=== PATIENT | male | born 1980 | race Caucasian/White ===

== ENCOUNTER 2021-02-08 11:09 | Outpatient (RCR) | payer BC, SELFPAY ==
[2014-09-02 22:35] VITALS: BMI 27.8
== END 2021-03-15 23:59 ==
LOC: IMMUN 11:09
PROVIDERS: PCP Family Medicine; Referring Provider Family Medicine; Visit Provider Family Medicine
DX: Z23 Encounter for immunization (principal)
CPT/HCPCS: 0001A; 0002A; 91300

== ENCOUNTER 2023-10-26 01:41 | Emergency (ER) | payer BC, SELFPAY ==
[2023-10-26 01:41] VITALS: BP 151/110; PULSE 106; RESP 17; TEMP 35.8; O2SAT 98; BMI 29.4
[2023-10-26 01:42] VITALS: BP 151/110; PULSE 85; RESP 16; TEMP 35.8; O2SAT 99
--- NOTE | 2023-10-26 01:50 | RAD_ITS ---
EXAM: XR LEFT SHOULDER COMPLETE, 2 OR MORE VIEWS CLINICAL INDICATION: injury injury TECHNIQUE: Two or more views of the left shoulder. COMPARISON: No relevant prior studies available. FINDINGS: BONES/JOINTS: Unremarkable. No acute fracture. No subluxation. Normal alignment. Preservation of the joint space. No sclerotic or destructive changes observed. SOFT TISSUES: Unremarkable. No soft tissue swelling or gas. No radiopaque foreign body. RAD/Shoulder min 2 Views IMPRESSION: Negative left shoulder x-rays. Electronically Signed: Edd Welch MD at 2:13 EST Reading Location ID and State: [facility] / [place] , Service support ,
--- NOTE | 2023-10-26 01:51 | EDS_ITS ---
HPI History of Present Illness Chief Complaint: Upper Extremity Injury Detail of Chief Complaint: Left shoulder injury Informant: patient Onset/Context/Timing Onset: Yesterday Narrative Narrative: Patient presents after left shoulder injury. He states last evening (day before arrival) the patient was running through his apartment when he ran into a wall with his left shoulder. He has bruising and erythema over the lateral aspect of his shoulder. No paresthesias. He does have decreased range of motion secondary to pain. He is right-hand dominant. He denies any other injury. He did take ibuprofen approximately 13 hours prior to exam. [facility] Medical History (Updated 10/26/23 @ 02:[address] Henny Ackerman MD) Asthma Home Medications albuterol sulfate 90 mcg/actuation aerosol inhaler (ProAir HFA) 1 - 2 puff inhalation Q4H PRN PRN Asthma 09/02/14 [History Last Taken Unknown] naproxen 500 mg tablet (Naprosyn) 500 mg PO BID PRN pain #20 tabs 10/26/23 [Rx Last Taken Unknown] Allergy/AdvReac Type Severity Reaction Status Date / Time No Known Allergies Allergy Verified 10/26/23 01:43 Family History Other Hypertension Kidney disease Surgical History H/O hernia repair Social History Smoking Status: Current every day smoker tobacco type: cigarettes alcohol intake: current alcohol intake frequency: a few times a week Alcohol type: beer ROS ROS ED Constitutional Constitutional ED: Denies chills or fever(s) Eyes Eyes: Denies discharge from eye(s) ENT ENT ED: Denies discharge from eye(s), rhinorrhea or sore throat Cardiovascular Cardiovascular: Denies chest pain or palpitations Respiratory/Chest Respiratory/Chest: Denies cough or dyspnea Gastrointestinal Gastrointestinal: Denies abdominal pain, nausea or vomiting Musculoskeletal Musculoskeletal: Reports extremity pain; Denies back pain Integumentary Denies Abrasions or rash Neurologic Neurologic: Reports weakness; Denies headache(s) or paresthesias Psychiatric Psychiatric: Denies anxiety or depression Allergic/Immunologic Allergic/Immunologic ED: Denies lip swelling or urticaria EXAM Physical Exam Const Vital Signs: 10/26/23 01:42 10/26/23 01:41 Temperature 96.5 F L 96.5 F L Temperature Source Temporal Temporal Pulse Rate 85 106 H Respiratory Rate 16 17 Blood Pressure 151/110 H 151/110 H Blood Pressure Mean 123 123 Pulse Ox 99 98 Oxygen Delivery Method Room Air Room Air Positive well nourished and well developed General Appearance ED: well developed HEENT Reports moist mucous membranes Chest Wall inspection of chest normal and palpation of chest normal Resp normal respiratory effort and clear to auscultation bilaterally Cardio regular rate and regular rhythm GI non-tender Palpation: soft Extremity Extremity Narrative: Ecchymosis and abrasions noted over the lateral aspect of the left shoulder. Mild diffuse tenderness to this area. No tenderness over the scapula or clavicle. No tenderness over the hand or forearm. Good range of motion at the elbow and wrist. Strong hand grasp with normal sensation. Strong distal pulses. Decreased range of motion at the shoulder itself secondary to pain. Neuro oriented x3 Skin Skin Narrative: Ecchymosis and abrasions as noted above. MDM MDM MDM Narrative Medical decision making narrative: Patient given a dose of [place] for pain. Left shoulder x-rays obtained to evaluate for potential fracture, subluxation, dislocation. Treatment and Re-Evaluation Narrative: Left shoulder x-rays per my interpretation reveal no evidence of fracture or dislocation. Radiology interpretation reviewed and agrees. Test results discussed with the patient. He will be given a prescription for naproxen and a sling. He was instructed on coming out of the sling several times a day to work on range of motion. He will be referred to orthopedics for follow-up if not improving. Return instructions given. Discharge Plan Triage Chief Complaint: Upper Extremity Injury ED Provider: Henny Ackerman Dx/Rx/DC Orders Clinical Impression: Contusion of left shoulder, Sprain of left shoulder Instructions: ED Contusion, Upper Extremity, ED Shoulder Sprain Prescriptions: New naproxen [Naprosyn] 500 mg tablet 500 mg PO BID PRN (Reason: pain) Qty: 20 0RF No Action albuterol sulfate [ProAir HFA] 1 PUFF inhaler 1 - 2 puff inhalation Q4H PRN PRN (Reason: Asthma) Primary Care Provider: Care Physician,No Primary Referrals: Yared Bowden MD [Non-Staff] - Gibran Kerr MD [Med Staff - Active Staff] - As Needed Disposition Disposition: Home, Self Care
[2023-10-26] MEDS: HYDROcodone Bitartrate/Apap 5/325 Tablet PO (01:54)
--- OUTSIDE RECORDS SUMMARY | 2023-10-26 02:15 | XMS RPT_ITS | CCD ---
Author Name Unknown Address [address] [place] [address] Organization [facility] Results Test Name Value Interpretation Reference Range Facil ity Progress note 07-15-2021 Note Date & Type Note Facility 07-15-2021 Note HNO ID: [id number] Author: Destiney Shrestha PA-C Service: ? Author Type: Physician [employer] Estate [employer]iter Type: Progress Notes Filed: 07/15/2021 3:30 PM Note Text: FOLLOW UP VISIT - HERNIA NAME: Suraj Garvey CLINIC NO.: [id number] DATE OF SERVICE: 07/15/2021 : 1980 REFERRING PHYSICIAN: Stephon Bowden MD Suraj is a patient I am following for a recurrent right inguinal hernia. Dr. Escobar performed open right recurrent inguinal hernia repair with mesh on 07/04/21. Patient was noted to have extensive scarring of the inguinal canal from prior surgery. He was found to have a sliding inguinal hernia sac with bladder wall. The patient currently notes no major complaints. his appetite has been good. he denies fever, chills or abdominal pain. He does note some mild incisional discomfort, improving each day. he notes no bulges at the operative site. Patient wishes to return to work tomorrow, states works mostly at a desk with no lifting. VITALS: Blood pressure 128/90, pulse 76, temperature 37.2 ?C (99 ?F), temperature source Temporal, height 180.3 cm (5' 11 ), weight 107.4 kg (236 lb 12.8 oz), SpO2 97 %. General: patient is alert, cooperative, pleasant and in no acute distress On examination, the abdomen is benign. The incision is healing well without signs of infection or inflammation. There are no signs of recurrent hernia formation. Assessment IMPRESSION: status post open right recurrent inguinal hernia repair with mesh PLAN: If the patient notes any problems, he should contact me immediately. he may return to his regular activities as tolerated, with the exception of no lifting greater than 20 pounds for the next 7 weeks. If patient feels the urge to cough or sneeze, they should brace against the repair site with their hands or a pillow. Diagnoses: (Z98.890, Z87.19) S/P hernia repair (primary encounter diagnosis) Return to Clinic: The patient is instructed to follow-up with me as needed. Patient verbalized understanding of all above and agreed with the plan. Destiney Shrestha PA-C [facility] Progress note 06-10-2021 Note Date & Type Note Facility 06-10-2021 Note HNO ID: [id number] Author: Yenni Escobar MD Service: ? Author Type: Physician Type: Progress Notes Filed: 06/15/2021 5:18 PM Note Text: HISTORY AND PHYSICAL Suraj Garvey 1980 REFERRING PHYSICIAN: Stehpon Bowden MD CHIEF COMPLAINT: Consult (consult possible right inguinal hernia) HPI: The patient is a 40 year old male presents with right groin swelling and pain He denies chronic heavy lifting. He has noted swelling for about two years, but lately has noted increased discomfort. He had previous right inguinal hernia repair as a child. He denies obstructive gastrointestinal or urine symptoms. PAST MEDICAL HISTORY Diagnosis Date - GERD (gastroesophageal reflux disease) - Unspecified asthma(493.90) - rarely uses inhalers PAST SURGICAL HISTORY Procedure Laterality Date - REPAIR ING HERNIA,5+Y/O,REDUCIBL 1984 Hernia repair, inguinal, right [place] teeth removal Current Outpatient Medications Medication Sig - albuterol HFA (PROAIR HFA) 90 mcg/actuation inhaler Inhale 2 Puffs as instructed every 4 hours as needed for Wheezing/Shortness of Breath. ALLERGIES: Patient has no known allergies. PERSONAL HISTORY: Social History Tobacco Use - Smoking status: Former Smoker Packs/day: 0.50 Types: Cigarettes Quit date: 11/11/2015 Years since quittin.5 - Smokeless tobacco: Current User Types: Chew Vaping Use - Vaping Use: Never used Substance Use Topics - Alcohol use: Yes Comment: OCCASIONAL - Drug use: No FAMILY HISTORY Problem Relation Age of Onset - Hypertension Father - Kidney Disease Father Polycystic Kidney Disease The review of systems data was entered by the nurse and reviewed by me Nursing Notes: Angie Navarro RN 06/10/2021 8:47 AM Signed REVIEW OF SYSTEMS: General: The patient denies fatigue, denies weight loss, denies weight gain, denies feeling hot, and denies feelings of cold. Eyes: The patient denies glaucoma, denies eye injury/surgery, does not wear glasses or contacts. Ear/Nose/Throat: The patient denies allergies, denies hayfever, denies ear infections, and denies bloody noses. Cardiovascular: The patient denies chest pain, denies heart disease, denies high blood pressure,denies cardiac stent, denies prior heart attack, denies irregular heart beat, denies high cholesterol, denies poor circulation, denies heart failure, other cardiac issues, denies claudication, denies cold feet, denies peripheral arterial stent. Respiratory: has asthma but rarely uses inhalers, has shortness of breath with exertion, denies coughing up blood . Gastrointestinal: The patient denies difficulty swallowing, NOTES acid reflux, denies ulcers, denies vomiting, denies jaundice/hepatitis, denies gallbladder problems, denies black or tarry stools, denies hemorrhoids, denies bleeding from rectum, denies diverticulitis, denies constipation, denies diarrhea, denies loss of stool control, and NOTES hernias. Kidney/Bladder: notes decreased urine stream, denies kidney stones, denies urine infections, and denies bloody urine. Skin: The patient denies a history of skin cancer, denies bleeding/changing moles, and denies a history of skin rash. Neurologic: The patient denies a history of epilepsy/convulsions, denies headaches, denies head/spinal injuries, and denies stroke/TIA. Psychiatric: The patient denies psychiatric medications, denies depression, and denies voices, denies substance abuse. Endocrine: The patient denies thyroid disorders, denies diabetes, and denies hormonal problems. Hematologic: The patient denies a history of bruising, denies bleeding, and denies anemia, denies blood clots. Infections: The patient denies a history of measles and mumps, denies rheumatic fever, and denies sexually transmitted diseases. Musculoskeletal: The patient denies back pain/injury, denies back problems, denies sciatica, denies knee/foot trouble, denies arthritis, or denies gout. When was patient's last Mammogram screening? N/A Last Colonoscopy: None Angie Navarro RN PHYSICAL EXAMINATION: General: The patient is 40 year old male, well nourished, well hydrated in no acute distress. The patient is oriented to time, place, and person. VITALS: Blood pressure 130/94, pulse 104, temperature 37.1 ?C (98.8 ?F), height 180.3 cm (5' 11 ), weight 107 kg (235 lb 12.8 oz), SpO2 99 %. Body mass index is 32.89 kg/m?. Head ? Normocephalic. EOM intact with sclera clear and no icterus noted. . Neck - supple with no jugular venous distention noted. Trachea is midline. Lungs ? clear to auscultation. Normal breath sounds. No rales/rhonchi/wheezing noted. No labored breathing noted, such as retractions. No cough heard. Heart ? normal S1 and S2 auscultated. No rubs/clicks/murmurs noted. Regular rate. Abdomen ? soft and benign. Normal bowel sounds. Genitalia ? normal male phallus, testes in normal anatomical position and no masses (more content not included)... [facility] Summary Purpose Family History No Family History Records Found Advance Directives No Advanced Directives Records Found Additional Source Comments (unrecognized sect ion and content) No Status Records Found INFORMATION SOURCE (unrecogn ized section and content) FOR RECORDS PERTAINING TO PATIENTS WHO ARE OR HAVE BEEN ENROLLED IN A CHEMICAL DEPENDENCY/SUBSTANCEABUSE PROGRAM, SOME INFORMATION MAY BE OMITTED. This clinical summary was aggregated from multiple sources. Caution should be exercised in using it in the provision of clinical care. This summary normalizes information from multiple sources, and as a consequence, information in this document may materially change the coding, format and clinical context of patient data. In addition, data may be omitted in some cases. CLINICAL DECISIONS SHOULD BE BASED ON THE PRIMARY CLINICAL RECORDS. [employer] [facility]. provides no warranty or guarantee of the accuracy or completeness of information in this document.
[2023-10-26 02:22] VITALS: BP 147/96; PULSE 85; RESP 16; TEMP 36.1
== END 2023-10-26 02:27 | disposition home or self-care (01) ==
PROVIDERS: Emergency Provider Emergency Medicine; Visit Provider Emergency Medicine
DX: S43.402A Unspecified sprain of left shoulder joint, initial encounter (principal); W22.01XA Walked into wall, initial encounter; Y93.02 Activity, running; J45.909 Unspecified asthma, uncomplicated; F17.210 Nicotine dependence, cigarettes, uncomplicated
CPT/HCPCS: 73030; 99283

== ENCOUNTER 2025-03-24 04:22 | Day surgery (SDC) | payer BC, SELFPAY ==
[2025-03-24] VITALS (15 sets, daily range): BP systolic 116–164; BP diastolic 66–101; PULSE 78–96; RESP 14–18; TEMP 36.1–36.9; O2SAT 87–99; BMI 31.1
--- NOTE | 2025-03-24 04:54 | CT_ITS ---
PROCEDURE: ABDOMEN/PELVIS W IV CONT ONLY 03/24/2025 REASON FOR EXAM: RIGHT GROIN PAIN WITH HERNIA TECHNIQUE: ABDOMEN/PELVIS W IV CONT ONLY Coronal and Sagittal reconstruction series were provided. CONTRAST: Isovue-350 VOLUME: 100 mL One or more dose reduction techniques were used (e.g., Automated exposure control, adjustment of the mA and/or kV according to patient size, use of iterative reconstruction technique. RADIATION DOSE SUMMARY: CTDlvol: 20.33 mGy DLP: 203 mGycm COMPARISON: None. FINDINGS: Right inguinal hernia containing thickened segment of the cecum with surrounding fat edema and free fluid suspicious for incarceration. No associated pneumatosis coli or perforation. Left inguinal hernia containing nonincarcerated fat. Mild prostatomegaly. Scattered prostatic calcifications, chronic finding. Scattered well-defined hypodense splenic lesions are noted with the largest measuring 1.2 cm, probably benign and chronic. Mild hepatic steatosis. Left renal simple cyst measuring 1.6 cm. The visualized lung bases are unremarkable. Normal gallbladder and extrahepatic biliary system. Normal pancreas. Normal bilateral adrenal glands. Normal size of the right kidney. There is no right renal mass. There are no right renal calculi. There is no right hydronephrosis. Normal visualized right ureter. Normal size of the left kidney. There is no left renal mass. There are no left renal calculi. There is no left hydronephrosis. Normal visualized left ureter. Normal visualized stomach. Normal small intestine. The appendix is visualized and appears normal. Normal abdominal aorta. Normal inferior vena cava. Normal retroperitoneum. Normal urinary bladder. There is no pelvic mass lesion or lymphadenopathy. Normal osseous structures. CT/Abdomen/Pelvis W IV Cont ONLY IMPRESSION: Right inguinal hernia containing thickened segment of the cecum with surroundin g fat edema and free fluid suspicious for incarceration. No associated pneumatosis coli or perforation. Left inguinal hernia containing nonincarcerated fat. Mild prostatomegaly. Scattered prostatic calcifications, chronic finding. Scattered well-defined hypodense splenic lesions are noted with the largest melody suring 1.2 cm, probably benign and chronic. Mild hepatic steatosis. Left renal simple cyst measuring 1.6 cm. Findings were discussed with Dr. Lal at 6:45 am EST. Reading Location: [place] [address]
--- NOTE | 2025-03-24 04:55 | EX.ED.DYSGE1 ---
HPI History of Present Illness Chief Complaint: Abd Pain Narrative Narrative: Chief complaint and HPI: Right groin/abdominal pain. 44-year-old male with past medical history of right inguinal hernia status post repair years ago with mesh presents for evaluation of right groin/abdominal pain. Patient states years ago he had his right inguinal hernia repaired. He states later on he developed what he thinks is a recurrent hernia into his testicle. States that he has not had any significant pain so has not had this further evaluated. Patient states yesterday evening he had intercourse with his girlfriend and developed severe pain in his abdomen/testicular area. Patient states his hernia bulge is less than it previously was. He states he is continue to have abdominal pain throughout the day with associated nausea. Denies any fever, chills, shortness of breath, chest pain, diarrhea, constipation, dysuria, hematuria. Review of systems: See HPI Medications: As listed on the chart Allergies: As listed on the chart PFSH: Per chart Vital signs: As listed on the chart. Reviewed. Physical exam: Gen: A&O x3, NAD Head: Normocephalic, atraumatic Eyes: No sclera icterus, conjunctiva clear ENT: Moist mucous membranes Neck: Trachea midline, No JVD CV: RRR, no murmurs, no peripheral edema Resp: Lungs CTA BL, no w/r/c GI: Abd soft, non-distended, tender to palpation in the right groin/lower abdomen, no rebound or rigidity : Circumcised penis. No penile tenderness or discharge. Patient has a large right inguinal hernia into his scrotum-tender to palpation without skin changes, normal lie and position of the testicles. No tenderness of the actual testicles. Mild yeast. No CVA tenderness Musc: Full ROM, no deformity Skin: Warm, dry Neuro: Alert, oriented, grossly intact, sensation intact Psych: Cooperative, appropriate mood and affect [facility] Medical History (Updated 11/03/23 @ 00:19 by Background Dasuadon) Asthma Home Medications ?Medication ?Instructions ?Recorded ?Last Taken ?Type NK 03/24/25 Unknown History Allergy/AdvReac Type Severity Reaction Status Date / Time No Known Allergies Allergy Verified 03/24/25 04:27 Family History Other Hypertension Kidney disease Surgical History H/O hernia repair Social History Smoking Status: Current every day smoker tobacco type: cigarettes alcohol intake: current alcohol intake frequency: a few times a week Alcohol type: beer EXAM Physical Exam Const Vital Signs: 03/24/25 04:24 03/24/25 06:22 Temperature 98.4 F Temperature Source Oral Pulse Rate 84 84 Respiratory Rate 18 16 Blood Pressure 164/101 H 132/94 H Blood Pressure Mean 122 106 Pulse Ox 99 98 Oxygen Delivery Method Room Air Room Air MDM MDM MDM Narrative Medical decision making narrative: 44-year-old male with past medical history of right inguinal hernia status post repair years ago with mesh presents for evaluation of right groin/abdominal pain. Patient states years ago he had his right inguinal hernia repaired. He states later on he developed what he thinks is a recurrent hernia into his testicle. Yesterday after having intercourse patient noticed that his hernia was smaller and now endorsing pain. See physical exam findings. Differential diagnosis includes but is not limited to incarcerated hernia, strangulated hernia, obstruction, appendicitis. NS bolus, morphine, Zofran ordered for symptoms. Abdominal pain workup ordered including CT abdomen and pelvis. CBC without leukocytosis or anemia. BMP unremarkable. Lactic acid unremarkable. UA negative for UTI. CT abdomen pelvis shows right inguinal hernia containing thickened segment of the cecum with surrounding fat edema and free fluid suspicious for incarceration. No associated pneumatosis or perforation. I was personally informed of this read by the radiologist over the phone. Left inguinal hernia containing nonincarcerated fat. Mild prostamegaly. With prostatic calcifications. Splenic lesions probably benign. Hepatic steatosis. Renal cyst. On reevaluation, patient's pain is still present. IV Dilaudid ordered. General surgery consulted. I spoke with Dr. Stoll. He will review the imaging and evaluate the patient for further management and plan. Patient was updated of this and confirmed understanding. Patient signed out to oncoming physician Dr. Wise. He will wait for general surgery recommendations. Impression: 1. Incarcerated right inguinal hernia Lab Data Labs: Laboratory Results - last 24 hr 03/24/25 03/24/25 04:43 05:15 WBC 7.7 RBC 5.07 Hgb 15.4 Hct 45.1 MCV 89.0 MCH 30.4 MCHC 34.1 RDW Std Deviation 39.8 RDW Coeff of Jessica 12.3 Plt Count 223 MPV 10.6 Immature Gran % (Auto) 0.900 Neut % (Auto) 60.7 Lymph % (Auto) 27.6 [place] % (Auto) 7.9 Eos % (Auto) 2.1 Baso % (Auto) 0.8 Absolute Neuts (auto) 4.7 Absolute Lymphs (auto) 2.12 Nucleated RBC % 0 Sodium 140 Potassium 4.0 Chloride 104 Carbon Dioxide 23.1 Anion Gap 13 BUN 16 Creatinine 1.02 Estim Creat Clear Calc 109.69 Est GFR (MDRD) Non-Af 92 BUN/Creatinine Ratio 16.1 Glucose 111 H Lactic Acid 2.0 Calcium 8.9 Urine Color Yellow Urine Clarity Clear Urine pH 5.0 Ur Specific [place] 1.025 Urine Protein 15 H Urine Glucose (UA) Normal Urine Ketones Negative Urine Occult Blood 50 H Urine Nitrite Negative Urine Bilirubin Negative Urine Urobilinogen Normal Ur Leukocyte Esterase Negative Urine RBC 0 SEEN Urine WBC 0-5 SEEN Ur Squamous Epith Cells 0 SEEN Urine Bacteria 0 SEEN Urine Mucus 0 SEEN Radiography Diagnostic Testing: Clinical Impression(s) from Imaging Studies Abdomen/Pelvis CT 03/24/25 04:54 IMPRESSION: Right inguinal hernia containing thickened segment of the cecum with surrounding fat edema and free fluid suspicious for incarceration. No associated pneumatosis coli or perforation. Left inguinal hernia containing nonincarcerated fat. Mild prostatomegaly. Scattered prostatic calcifications, chronic finding. Scattered well-defined hypodense splenic lesions are noted with the largest measuring 1.2 cm, probably benign and chronic. Mild hepatic steatosis. Left renal simple cyst measuring 1.6 cm. Findings were discussed with Dr. Lal at 6:45 am EST. Reading Location: [place] [address] Discharge Plan Triage Chief Complaint: Abd Pain ED Provider: Chava Geiger Dx/Rx/DC Orders Prescriptions: No Action NK Primary Care Provider: Care Physician,No Primary Referrals: Care Physician,No Primary [Primary Care Provider] - Print Language: Cymro
[2025-03-24 05:02] LABS: Bacteria 0 SEEN /hpf (None Seen); Mucous, Urine 0 SEEN /hpf (<or=2+); Red Blood Cells-Urine 0 SEEN /hpf (0-5); Squamous Epithelial Cells - UA 0 SEEN /hpf (0-5)
[2025-03-24 05:03] LABS: Absolute Lymphocyte Count 2.12 X10^3/uL (0.83-4.51); Absolute Neutrophil Count 4.7 X10^3/uL (2.0-7.7); Basophil# 0.06 X10^3/uL; Basophil% 0.8 % (0-1); Eosinophil# 0.16 X10^3/uL; Eosinophils% 2.1 % (0-5); Hematocrit 45.1 % (40-54); Hemoglobin 15.4 g/dL (13.0-16.5); Lymphocyte # 2.12 X10^3/ul (0.83-4.51); Lymphocyte % 27.6 % (19-41); Mean Corp Hgb Conc 34.1 g/dL (32-36); Mean Corpuscular Hgb 30.4 pg (27.0-32.0); Mean Platelet Vol. 10.6 fl (6.2-12.0); Monocyte# 0.61 X10^3/uL; Monocyte% 7.9 % (0-10); NRBC Flagged by Analyzer 0 % (0-5); Neutrophil # 4.66 X10^3/uL (2.7-7.7); Neutrophil % 60.7 % (47-70); Platelet Count 223 K/mm3 (150-450); RBC Distribution Width CV 12.3 % (11.6-14.6); RBC Distribution Width SD 39.8 fl (35.1-43.9); Red Blood Count 5.07 M/mm3 (4.6-6.2); White Blood Count 7.7 K/mm3 (4.4-11.0)
--- OUTSIDE RECORDS SUMMARY | 2025-03-24 05:03 | XMS RPT_ITS | CCD ---
Author Organization [facility] Care Team Providers Care Furnace Unloader Name Role Phone Yared Thomas Referring Unavailable Yared Thomas Primary Care Unavailable Price Stout Attending Unavailable Henny Ackerman Attending Unavailable Care Physician, No Primary Primary Care Unava ilable Problems Active Problems Problem Classification Problem Date Documented Da te Episodic/Chronic Superficial injury; contusion (1 source) Unspecified superficial injury of left shoulder, initial encounter; Translations: [Unspecified superficial injury of left shoulder, initial encounter] Onset: 10-28-2023 Episodic Past or Other Problems Problem Classification Problem Date Documented Da te Episodic/Chronic Allergic reactions (1 source) Unspecified contact dermatitis, unspecified cause; Translations: [Unspecified contact dermatitis, unspecified cause] Onset: 04-10-2023 Episodic Results Test Name Value Interpretation Reference Range Facil ity Emergency Department Summary on 10-26-2023 Emergency Department Summary [facility] Medical Records Department [address] [facility] [place] [address] Emergency Department Summary 10/26/23 MR#: [id number] Acct: [id number] Name: SURAJ GARVEY Rep #: [id number] : 1980 43 From: Henny Ackerman MD PCP: Care Physician,No Primary Status:DEP ER Location: ED HPI History of Present Illness Chief Complaint: Upper Extremity Injury Detail of Chief Complaint: Left shoulder injury Informant: patient Onset/Context/Timing Onset: Yesterday Narrative Narrative: Patient presents after left shoulder injury. He states last evening (day before arrival) the patient was running through his apartment when he ran into a wall with his left shoulder. He has br uising and erythema over the lateral aspect of his shoulder. No paresthesias. He does have decreased range of motion secondary to pain. He is right-hand dominant. He denies any other injury. He did take ibuprofen approximately 13 hours prior to exam. [facility] Medical History (Updated 10/26/23 @ 02:[address] Henny Ackerman MD) Asthma Home Medications albuterol sulfate 90 mcg/actuation aerosol inhaler (ProAir HFA) 1 - 2 puff inhalation Q4H PRN PRN Asthma 09/02/14 [History Last Taken Unknown] naproxen 500 mg tablet (Naprosyn) 500 mg PO BID PRN pain #20 tabs 10/26/23 [Rx Last Taken Unknown] Allergy/AdvReac Type Severity Reaction Status Date / Time No Known Allergies Allergy Verified 10/26/23 01:43 Family History Other Hypertension Kidney disease Surgical History H/O hernia repair Social History Smoking Status: Current every day smoker tobacco type: cigarettes alcohol intake: current alcohol intake frequency: a few times a week Alcohol type: beer ROS ROS ED Constitutional Constitutional ED: Denies chills or fever(s) Eyes Eyes: Denies discharge from eye(s) ENT ENT ED: Denies discharge from eye(s), rhinorrhea or sore throat Cardiovascular Cardiovascular: Denies chest pain or palpitations Respiratory/Chest Respiratory/Chest: Denies cough or dyspnea Gastrointestinal Gastrointestinal: Denies abdominal pain, nausea or vomiting Musculoskeletal Musculoskeletal: Reports extremity pain; Denies back pain Integumentary Denies Abrasions or rash Neurologic Neurologic: Reports weakness; Denies headache(s) or paresthesias Psychiatric Psychiatric: Denies anxiety or depression Allergic/Immunologic Allergic/Immunologic ED: Denies lip swelling or urticaria EXAM Physical Exam Const Vital Signs: 10/26/23 01:42 10/26/23 01:41 Temperature 96.5 F L 96.5 F L Temperature Source Temporal Temporal Pulse Rate 85 106 H Respiratory Rate 16 17 Blood Pressure 151/110 H 151/110 H Blood Pressure Mean 123 123 Pulse Ox 99 98 Oxygen Delivery Method Room Air Room Air Positive well nourished and well developed General Appearance ED: well developed HEENT Reports moist mucous membranes Chest Wall inspection of chest normal and palpation of chest normal Resp normal respiratory effort and clear to auscultation bilaterally Cardio regular rate and regular rhythm GI non-tender Palpation: soft Extremity Extremity Narrative: Ecchymosis and abrasions noted over the lateral aspect of the left shoulder. Mild diffuse tenderness to this area. No tenderness over the scapula or clavicle. No tenderness over the hand or forearm. Good range of motion at the elbow and wrist. Strong hand grasp with normal sensation. Strong distal pulses. Decreased range of motion at the shoulder itself secondary to pain. Neuro oriented x3 Skin Skin Narrative: Ecchymosis and abrasions as noted above. MDM MDM MDM Narrative Medical decision making narrative: Patient given a dose of [place] for pain. Left shoulder x-rays obtained to evaluate for potential fracture, subluxation, dislocation. Treatment and Re-Evaluation Narrative: Left shoulder x-rays per my interpretation reveal no evidence of fracture or dislocation. Radiology interpretation reviewed and agrees. Test results discussed with the patient. He will be given a prescription for naproxen and a sling. He was instructed on coming out of the sling several times a day to work on range of motion. He will be referred to orthopedics for follow-up if not improving. Return instructions given. Discharge Plan Triage Chief Complaint: Upper Extremity Injury ED Provider: Henny Ackerman Dx/Rx/DC Orders Clinical Impression: Contusion of left shoulder, Sprain of left shoulder Instructions: ED Contusion, Upper Extremity, ED Shoulder Sprain Prescriptions: New naproxen [Naprosyn] 500 mg tablet 500 mg PO BID PRN (Reason: pain) Qty: 20 0RF (more content not included)... [facility] Shoulder min 2 Viewson 10-26 Shoulder min 2 Views [facility] [address] [place] [address] Shoulder min 2 Views MR#: [id number] Acct: [id number] Name: SURAJ GARVEY TY Rep #: [id number] : 1980 M 43 From: Edd saldivar MD PCP: Care Physician,No Primary Status: REG ER Study: Shoulder min 2 Views Date of Exam: 10/26/23 Exam# [id number] Ordering [place]: [place] [id number] EXAM: XR LEFT SHOULDER COMPLETE, 2 OR MORE VIEWS CLINICAL INDICATION: injury injury TECHNIQUE: Two or more views of the left shoulder. COMPARISON: No relevant prior studies available. FINDINGS: BONES/JOINTS: Unremarkable. No acute fracture. No subluxation. Normal alignment. Preservation of the joint space. No sclerotic or destructive changes observed. SOFT TISSUES: Unremarkable. No soft tissue swelling or gas. No radiopaque foreign body. RAD/Shoulder min 2 Views IMPRESSION: Negative left shoulder x-rays. Electronically Signed: Edd Welch MD at 2:13 EST , CC: Dr. Henny Ackerman MD; No Primary Care Physician Spare Hand Carding: Signed [facility] Urgent Care Visit Reporton 0 04-10-2023 Urgent Care Visit Report [facility] [address] [place] [address] [address] [place] [address] OFFICE VISIT Date of Service: 04/10/23 MR#: [id number] Acct: [id number] Name: SURAJ GARVEY TY Rep #: [id number] : 1980 Provider: AYESHA Luna Age/Sex: 42/M Location: [facility] Status: Signed Intake Vital Signs 09/02/14 22:35 04/10/23 07:38 Height 5 ft 11 in 5 ft 11 in Weight: 216 lb 4 oz BMI 30.1 BP 132/72 H Blood Pressure Location Lt brachial Position Sitting Respiration 12 Pulse 82 Pulse Source Monitor Temp 97.8 F Temp Source Temporal Pulse Oximetry (%) 99 Oxygen Delivery Method room air Intake Visit Reasons: POSION CRIS Tender Labor Required: No Accompanied by: Self Allergies No Known Allergies Allergy (Verified 09/02/14 22:43) Nurse's Note: RASH OVER TORSO AND BILATERAL UPPER AND LOWER EXTREMITIES. SEEPING X2 WKS NO RELIEF WITH OTC MEDS PFSH Medical History (Updated 04/10/23 @ 07:48 by Price HODGE, AYESHA) Asthma Chest pain Shortness of breath Surgical History (Updated 07/14/23 @ 07:24 by Christy Fulotn) H/O hernia repair Family History (Updated 04/10/23 @ 07:25 by Christy Fulton) Other Hypertension Kidney disease Social History (Updated 04/10/23 @ 07:27 by Christy Fulton) Smoking Status: Current every day smoker tobacco type: cigarettes alcohol intake: current alcohol intake frequency: a few times a week Alcohol type: beer HPI HPI Details: SURAJ GARVEY, is a 42 M who presents to the office today for complaint of poison cris rash for the past 2 weeks. Patient states he had known poison cris exposure and then started with a rash on his arms which has spread to his abdomen, lower extremities and neck. Patient denies shortness of breath, difficulty breathing or chest pain. No lip/tongue/throat swelling. No other associated symptoms or alleviating/aggravating factors. ROS Const Constitutional: No other (6 system ROS completed with pertinent findings in the HPI otherwise normal.) Exam Const General: cooperative and healthy appearing HENVA Head: normocephalic and atraumatic Ears: hearing grossly normal bilaterally Nose: external nose normal Face and sinus: normal facial exam and face symmetric Mouth: oral mucosae normal Throat: posterior oropharynx normal Resp Effort Inspection: normal respiratory effort Skin General: no rashes or lesions noted Other: Grouped vesicular rash to bilateral extremities, abdomen and neck Neuro General: patient alert Psych Appearance: grossly normal Mental Status: mental status grossly normal Coding Level of Care Code Off vis,new,level 3 Diagnoses Irritant contact dermatitis due to plant L24.7 Assessment and Plan Assessment and Plan (1) Irritant contact dermatitis due to plant: Status: Acute Medications: New prednisone Take 4 tabs once daily days 1-3 3 tabs daily days 4-6 2 tabs daily days 7-9 and 1 tab once daily days 10-12. 10 mg PO QDAY 12 days 30 tabs 0RF L25.9 - Unspecified contact dermatitis, unspecified cause Plan Prednisone taper as prescribed today. Encouraged to get plenty of rest, drink lots of clear liquids, and use Benadryl for comfort. Patient also educated on other symptomatic management techniques. To be seen in 7-10 days if no improvement; sooner if worsening of symptoms. Patient advised of potential red flags and when appropriate to report to the ED. Patient verbalized understanding and agreement with all the above. 04/10/23 0911 Date Price Rowland Signature: Date (if applicable) CC: [facility] CNOVon 07-15-2021 CNOV Office Visit (GENSWS ) SURAJ GARVEY ([id number]) 1980 M Date Time Provider Department 07/15/21 2:30 PM CHECO SHRESTHA During your visit today, we recorded the following information about you: Temperature Pulse Blood pressure Weight 99 degrees 76/minute 128/90 107.4 kg Height 1.803 m Checo Shrestha PA-C 07/15/2021 2:45 PM Signed -OK to return to work tomorrow The following instructions are important for you related to your office visit today with the [facility] General Surgeons. INSTRUCTIONS FOLLOWING YOUR RECENT HERNIA SURGERY You should be returning to your regular diet, If you have having persistent issues with tolerating your diet, please contact our office It is not unusual to have incisional pain for the first 1-2 weeks following surgery. If this persists beyond 2 weeks, contact the office You should leave the Steri-Strips in place until they fall off. You may return to your regular activities. You may drive if you are no longer taking narcotic pain medication. Climbing stairs is fine. Walking in encouraged. Sitting up from bed may be uncomfortable. Sitting up using your lateral abdominal muscles (sitting up sideways) is usually more comfortable. You should perform no lifting greater than 20lbs for the next 6-7 weeks. Usually 8 weeks total from the date of surgery. It is not unusual to have loose stools following surgery. This is usually self limited and related to the antibiotics that were given during your surgical procedure. Fiber supplementation and yogurt with active cultures may help you return to regular bowel activity. If you note loose stools persisting for over 2 weeks, or significant cramping or loose bloody stools, contact the office immediately. Contact the office immediately if any of your incisions become increasingly tender, red or have drainage. Again, if you have any difficulties or concerns, contact our office immediately. If you note any additional difficulties, questions, or concerns, you should contact our office immediately @ [phone] and ask to be transferred to the General Surgery department. Checo Shrestha PA-C 07/15/2021 3:30 PM Signed FOLLOW UP VISIT - HERNIA NAME: Suraj Garvey CLINIC NO.: [id number] DATE OF SERVICE: 07/15/2021 : 1980 REFERRING PHYSICIAN: Antonina Thomas MD Suraj is a patient I am [...] temperature source Temporal, height 180.3 cm (5' 11), weight 107.4 kg (236 lb 12.8 oz), [...] all above and agreed with the plan. ____ Checo Shrestha PA-C Referring Provider: ANTONINA THOMAS [[id number]] Allergies As of Date: 07/15/2021 (No Known Allergies) Date Reviewed: 07/15/2021 Reviewed by: Angie Navarro RN - Fully Assessed Reason for Visit: Post Op Follow Up [3947] Cmt: right inguinal hernia repair Primary Visit Diagnosis:S/P hernia repair [Z98.890, Z87.19] Prescriptions as of 07/15/2021 - oxyCODONE IR (ROXICODONE) 5 mg immediate release tablet Take by mouth every 8 hours as needed for pain. - albuterol HFA (PROAIR HFA) 90 mcg/actuation inhaler Inhale 2 Puffs as instructed every 4 hours as needed for Wheezing/Shortness of Breath. Problem List As Of Date 07/15/2021 Noted Resolved ASTHMA UNSPECIFIED [J45.909] Smoker [F17.200] 10/30/2009 COPD Exacerbation [ (more content not included)... [facility] ANES POSTPROC EVALon 021 ANES POSTPROC EVAL HNO ID: [id number] Author: Karine Engel MD Service: Anesthesiology Author Type: Physician Type: Anesthesia Postprocedure Evaluation Filed: 07/04/2021 2:04 PM Note Text: POST ANESTHESIA EVALUATION NOTE : 1980 Procedure Summary Date: 07/04/21 Room / Location: LD OR OR Anesthesia Start: 1047 Anesthesia Stop: Procedure: HERNIORRHAPHY INGUINAL ELECTIVE ADULT REDUCIBLE (Right Groin) Diagnosis: Right inguinal hernia Surgeons: Yenni Escobar MD Responsible Provider: Karine Engel MD Anesthesia Type: MAC ASA Status: 2 Anesthesia Type: MAC Last vitals Vitals Value Taken Time BP 120/78 07/04/21 1401 Temp 97.3 07/04/21 1404 Pulse 94 07/04/21 1403 Resp 12 07/04/21 1403 SpO2 95 % 07/04/21 1403 Vitals shown include unvalidated device data. Post Anesthesia Patient Status Patient Evaluation: bedside. Anticipated Disposition: phase 2 then home. Neurological Status: aware and responsive. Pulmonary Status: breathing comfortably on room air Airway Control: returned to baseline unsupported. Cardiovascular Status: stable. Pain Management: clinically adequate Postoperative Hydration: acceptable. Intraoperative Events: no significant anesthesia events Post Operative Nausea/Vomiting Status: no significant post operative nausea or vomiting Anesthetic Observations: Recommendation: continue current plan of care. Anesthesia Observations No Documentation SIGNATURE: Karine Engel MD PATIENT NAME: Suraj Garvey DATE: July 04, 2021 TIME: 2:04 PM CSN: [id number] [facility] ANES PRE-OPon 07-04-2021 ANES PRE-OP HNO ID: [id number] Author: Karine Engel MD Service: Anesthesiology Author Type: Physician Type: Anesthesia Preprocedure Evaluation Filed: 07/04/2021 10:36 AM Note Text: ANESTHESIOLOGY DAY OF SURGERY NOTE : 1980 Procedure(s) (LRB): HERNIORRHAPHY INGUINAL ELECTIVE ADULT REDUCIBLE (Right) Surgeon(s): Yenni Escobar MD Estimated body mass index is 32.89 kg/m? as calculated from the following: Height as of 06/10/21: 180.3 cm (5' 11). Weight as of 06/10/21: 107 kg (235 lb 12.8 oz). Most recent hematocrit and potassium results: No results found for this basename: HCT,HEMATOCRIT,K,POTASS IUM Relevant Problems PULMONARY (+) COPD exacerbation (HCC) I - PHYSICAL EVALUATION AIRWAY Patient intubated: No. Tracheostomy tube not present Mallampati: II. TM distance: >3 FB. Neck ROM: full ROM without neurological symptoms. Mouth opening: adequate. Short neck: yes (pt. has larsen). Thick neck: no DENTAL Dental findings: missing tooth/teeth. Additional comments: Missing teeth upper left and right and lower left. Additional exam findings: yes. CARDIOVASCULAR Normal cardiovascular observations. PULMONARY Normal pulmonary observations. II - ANESTHESIA PLAN ASA Score: 2 Anesthetic Plan: MAC The patient is not a current smoker. (quit 41/2 yrs. ago) NPO Status: adequate Monitoring plan: standard ASA. Postoperative analgesic plan: parenteral or oral opioids. Anesthetic Risks, Benefits, Alternatives, Personnel Discussed. Consent obtained from: patient.Patient / Surrogate agrees to blood products: Yes Potential Anesthesia issues that may suggest increased risk of complications or contraindication to planned procedure: none. Vitals Value Taken Time BP 115/75 07/04/21 0845 Pulse 74 07/04/2118 Resp 17 07/04/21917 Temp 37.2 ?C (98.9 ?F) 07/04/21 0825 SpO2 98 % 07/04/21 0839 Vitals shown include unvalidated device data. Facility-Administered Medications as of 07/04/2021 Medication Dose Route Frequency - lidocaine 10 mg/mL (1 %) 1-2 mg injection (XYLOCAINE) 0.1-0.2 mL INTRADERMAL PRN - lactated ringers iv infusion 5-30 mL/hr INTRAVENOUS CONTINUOUS - [COMPLETED] ceFAZolin 2 g in dextrose (iso-osmotic) 50 mL (ANCEF,KEFZOL) 2 g INTRAVENOUS Pre-Op Once Outpatient Medications as of 07/04/2021 Medication Sig - albuterol HFA (PROAIR HFA) 90 mcg/actuation inhaler Inhale 2 Puffs as instructed every 4 hours as needed for Wheezing/Shortness of Breath. I have interviewed and examined the patient. I have reviewed the medical record and/or the pre-anesthesia evaluation, pertinent labs, and test results. This contains updated information obtained within 48 hours of Surgery/Procedure. SIGNATURE: Karine Engel MD PATIENT NAME: Suraj Garvey DATE: July 04, 2021 TIME: 10:19 AM CSN: [id number] [facility] BRIEF OP NOTon 07-04-2021 BRIEF OP NOT HNO ID: [id number] Author: Yenni Escobar MD Service: ? Author Type: Physician Type: Brief Op Note Filed: 07/04/2021 1:43 PM Note Text: BRIEF OPERATIVE NOTE SURGERY DATE: 07/04/2021 Incision/Procedure Start Time: 11:04 Incision Close/Procedure End Time: 13:38 Surgeon(s)/Proceduralis t(s) and Basting Marker(s): first Shawncutting table operator first Checo Shrestha PA-C Procedures: Redo right inguinal sliding hernia repair with plug mesh Anesthesia: General Findings: medial recurrence of hernia, sliding hernia with part of bladder wall Estimated Blood Loss: 10 ml Specimens: None Complications: None IMPLANTS: Implant Name Type Inv. Item Serial No. Blood Bank Laboratory Technician Lot No. LRB No. Used Action MESH SURGIPRO LARGE POLYPROPYLENE SURGICAL NONABSORBABLE PLUG KNITTED - [id number] Mesh MESH SURGIPRO LARGE POLYPROPYLENE SURGICAL NONABSORBABLE PLUG KNITTED ATHENS [id number] Right 1 Implanted Exp 2022-11-25 Preop Diagnosis: recurrent right inguinal hernia Postop Diagnosis: redo right sliding inguinal hernia repair with plug mesh SIGNATURE: Yenni Escobar MD PATIENT NAME: Suraj Garvey DATE: July 04, 2021 TIME: 1:24 PM [facility] NURSING PROGon 07-04-2021 NURSING PROG HNO ID: [id number] Author: Su Laird RN Service: Nursing Author Type: Registered Nurse Type: Nursing Progress Note Filed: 07/11/2021 1:05 PM Note Text: Patient states he is doing well. Only has pain when he bends the wrong way. Has not needed pain medication. Dressing to incisional site intact and dry. No redness, swelling, drainage or pain at site. Has an appointment with AYESHA at Dr. Escobar's office on ThursdayJuly 15. [facility] OPERATIVE NOon 07-04-2021 OPERATIVE NO HNO ID: [id number] Author: Yenni Escobar MD Service: ? Author Type: Physician Type: Operative Report Filed: 07/05/2021 10:43 AM Note Text: [facility] - [place] : 1980 AGE: 40. SEX: M PATIENT TYPE: A HOSP SVC: GENS LOCATION: [facility] ATTENDING PHYSICIAN: Yenni Escobar MD CSN NUMBER: [id number] DATE OF SURGERY/PROCEDURE: 07/04/2021 INCISION/PROCEDURE START TIME: 11:04 AM INCISION CLOSE/PROCEDURE END TIME: 1:38 PM PREOPERATIVE DIAGNOSIS: Recurrent right inguinal hernia. POSTOPERATIVE DIAGNOSIS: Recurrent sliding right inguinal hernia. SURGEON: Yenni Escobar MD TUBE BENDER HAND: Checo Shrestha. She is a PA assisting me as there is no surgery residents available. She assisted in retraction during the procedure as well as closure of the wound under my supervision. SURGERY/PROCEDURE: Repair of sliding inguinal hernia (CPT code 73510). FINDINGS: recurrent right inguinal hernia - sliding hernia with bladder wall ANESTHESIA: General, LMA. LOCATION: [facility]. SPECIMENS: None. ESTIMATED BLOOD LOSS: Less than 10 mL. INDICATIONS: Suraj Garvey is a 40-year-old white male, who presents with right inguinal hernia. He had a previous right inguinal hernia repair as a child at the age of 3. He presents for a right inguinal hernia repair. He has been counseled the risks of procedure including, but not limited to, infection, bleeding, injury to any bowel or bladder, injury to any intraabdominal organs, injury to any blood vessels or nerves, scar tissue, recurrence of hernia, injury to spermatic cord and/or testicle, chronic groin pain, injury to any nerves, seroma, hematoma, wound infections, scar tissue, etc. The patient understands and agrees to proceed. DESCRIPTION OF PROCEDURE: After informed consent was given, the patient was brought to the operating room. Appropriate time-out protocol was done in the preprocedure area as well as in the operating room. The patient's right lower torso and genitalia and groin area were then prepped with sterile surgical skin preparation. Appropriate sterile surgical drapes were placed. The anatomical landmarks were marked out that is the pubic tubercle as well as the anterior iliac spine. The patient had a previous right inguinal incision from his previous surgery and therefore, an incision was made superior to that to avoid scar tissue. The skin and subcutaneous tissues were infiltrated with local anesthetic prior to the incision being made. Dissection then continued down to the external oblique fascia. The external oblique fascia was then opened along the inguinal canal roof through to the external ring. The patient had a large bulky sac that was noted in the inguinal canal area after the inguinal canal was unroofed and after the external oblique fascia was divided along its fibers to the external ring, carefully avoiding any injury to any blood vessels or nerves. The sac was then dissected from the adjacent cord structures down to the internal ring. This was done carefully avoiding any injury to any of the structures. This took some time because of the scar tissue that was encountered, that was from the patient's previous surgery. There was more scar tissue than anticipated given that the patient had the surgery at the age of 3. The entire inguinal canal was scarred down. Therefore, it took some time to dissect the spermatic cord contents as well as the peritoneal sac from within its position in the inguinal canal. The peritoneal portion of the sac was then identified and incised. It was revealed that the bladder wall was part of the sac, thus consistent with a sliding inguinal hernia. Its intraperitoneal surface was visualized within the sac. The peritoneal sac was then trimmed from the sliding component with good margin around the bladder and around its edge of the entire herniated portion. This was done to the level of the internal ring on all sides. The rim of tissue was then everted and sutured to itself from its apex toward the internal ring. This therefore protected the bladder sliding component. This sliding component was then reduced back into the abdominal cavity via the internal ring. The peritoneum at the internal ring was then closed with a running 3-0 Vicryl suture. The spermatic cord was then placed back in its proper anatomical position. Hemostasis was carefully check and controlled with electrocautery. Of note is that the recurrence of the hernia was at the medial aspect at the pubic tubercle. The remainder of the inguinal canal floor was intact. Therefore, a plugged portion of the PerFix patch system was then placed into this space and it was tacked to the pubic tubercle using a 5 mm tacker. The plug was then flanged up against the anterior abdominal wall. It was sutured to the confluence of the internal oblique and transv (more content not included)... [facility] HISTORY PHYSICALon HISTORY PHYSICAL HNO ID: [id number] Author: Yenni Escobar MD Service: ? Author Type: Physician Type: HANDP Filed: 07/03/2021 4:52 PM Note Text: HISTORY AND PHYSICAL ? Suraj Garvey 1980 ? ? REFERRING PHYSICIAN: Antonina Thomas MD ? CHIEF COMPLAINT: Consult (consult possible right inguinal hernia) ? HPI: The patient is a 40 year old male presents with right groin swelling and pain He denies chronic heavy lifting. He has noted swelling for about two years, but lately has noted increased discomfort. He had previous right inguinal hernia repair as a child. He denies obstructive gastrointestinal or urine symptoms. ? ? PAST MEDICAL HISTORY Diagnosis Date - GERD (gastroesophageal reflux disease) ? - Unspecified asthma(493.90) - rarely uses inhalers ? ? PAST SURGICAL HISTORY Procedure Laterality Date - REPAIR ING HERNIA,5+Y/O,REDUCIBL ? 1983 ? Hernia repair, inguinal, right [place] teeth removal ? ? Current Outpatient Medications Medication Sig - albuterol HFA (PROAIR HFA) 90 mcg/actuation inhaler Inhale 2 Puffs as instructed every 4 hours as needed for Wheezing/Shortness of Breath. ? ? ALLERGIES: Patient has no known allergies. ? PERSONAL HISTORY: Social History ? Tobacco Use - Smoking status: Former Smoker ? ? Packs/day: 0.50 ? ? Types: Cigarettes ? ? Quit date: 11/11/2015 ? ? Years since quittin.5 - Smokeless tobacco: Current User ? ? Types: Chew Vaping Use - Vaping Use: Never used Substance Use Topics - Alcohol use: Yes ? ? Comment: OCCASIONAL - Drug use: No FAMILY HISTORY Problem Relation Age of Onset - Hypertension Father ? - Kidney Disease Father ? ? Polycystic Kidney Disease ? The review of systems data was entered by the nurse and reviewed by me ? Nursing Notes: Angie Navarro RN 06/10/2021 8:47 [...] N/A Last Colonoscopy: None Angie Navarro RN ? ? PHYSICAL EXAMINATION: General: The patient is 40 year old male, well nourished, well hydrated in no acute distress. The patient is oriented to time, place, and person. VITALS: Blood pressure 130/94, pulse 104, temperature 37.1 ?C (98.8 ?F), height 180.3 cm (5' 11), weight 107 kg (235 lb 12.8 oz), [...] rate. Abdomen ? soft and benign. Normal b (more content not included)... [facility] CNOVon 06-10-2021 CNOV Office Visit (GENSWTiana ) SURAJ GARVEY ([id number]) 1980 M Date Time Provider Department 06/10/21 8:40 AM YENNI ESCOBAR During your visit today, we recorded the following information about you: Temperature Pulse Blood pressure Weight 98.8 degrees 104/minute 130/94 107 kg Height 1.803 m Angie Navarro RN 06/10/2021 8:47 AM Signed [...] cold feet, denies peripheral arterial stent. Respiratory: The patient denies tuberculosis, denies pneumonia, denies frequent cough, denies pulmonary embolism, NOTES shortness of breath, denies coughing up blood and NOTES asthma. Gastrointestinal: The patient denies difficulty swallowing, NOTES acid reflux, denies ulcers, denies vomiting, denies jaundice/hepatitis, denies gallbladder problems, denies black or tarry stools, denies hemorrhoids, denies bleeding from rectum, denies diverticulitis, denies constipation, denies diarrhea, denies loss of stool control, and NOTES hernias. Kidney/Bladder: The patient denies kidney stones, denies urine infections, and [...] last Mammogram screening? N/A Last Colonoscopy: None SAAD Harper MD 06/15/2021 5:18 PM Signed HISTORY AND PHYSICAL Suraj Garvey 1980 REFERRING PHYSICIAN: Antonina Thomas MD CHIEF COMPLAINT: Consult (consult possible right [...] ING HERNIA,5+Y/O,REDUCIBL 1984 Hernia repair, inguinal, right [place] teeth removal Current Outpatient Medications Medication Sig [...] entered by the nurse and reviewed by dc Nursing Notes: Angie Navarro RN 06/10/2021 8:47 [...] denies high blood pressure,denies cardiac stent, denies (more content not included)... [facility] Encounters Encounter Date Encounter Type Care Provider Facility Start: 10-26-2023 End: 10-26-2023 Emergency department patient visit Henny Ackerman Facility:[facility] Start: 04-10-2023 End: 04-10-2023 ambulatory Yared Thomas [place] [place] Payers Date Payer Category Payer Self-pay 2023 Unknown [id number] Unknown [id number] Unknown [id number] Progress note 07-15-2021 Note Date & Type Note Facility 07-15-2021 Note HNO ID: [id number] Author: Checo Shrestha PA-C Service: ? Author Type: Physician Basting Marker Type: Progress Notes Filed: 07/15/2021 3:30 PM Note Text: FOLLOW UP VISIT - HERNIA NAME: Suraj [facility] NO.: [id number] DATE OF SERVICE: 07/15/2021 : 1980 REFERRING PHYSICIAN: Antonina Thomas MD Suraj is a patient I am [...] temperature source Temporal, height 180.3 cm (5' 11), weight 107.4 kg (236 lb 12.8 oz), [...] all above and agreed with the plan. Checo Shrestha PA-C [facility] Progress note 06-10-2021 Note Date & Type Note Facility 06-10-2021 Note HNO ID: [id number] Author: Yenni Escobar MD Service: ? Author Type: Physician Type: Progress Notes Filed: 06/15/2021 5:18 PM Note Text: HISTORY AND PHYSICAL Surajsaundra Garvey 1980 REFERRING PHYSICIAN: Antonina Thomas MD CHIEF COMPLAINT: Consult (consult possible right [...] Procedure Laterality Date - REPAIR ING HERNIA,5+Y/O,REDUCIBL 1983 Hernia repair, inguinal, right [place] teeth removal Current Outpatient Medications Medication Sig [...] entered by the nurse and reviewed by dc Nursing Notes: Angie Navarro RN 06/10/2021 8:47 [...] ?C (98.8 ?F), height 180.3 cm (5' 11), weight 107 kg (235 lb 12.8 oz), [...] and no masses (more content not included)... [facility] Summary Purpose Family History No Family History Records FoundNo Family History Records Found Advance Directives No Advanced Directives Records FoundNo Advanced Directives Records Found Additional Source Comments (unrecognized sect ion and content) No Status Records FoundNo Status Records Found INFORMATION SOURCE (unrecogn ized section and content) DATE CREATED AUTHOR 11/13/2021 [facility] DATE CREATED AUTHOR AUTHOR'S ORGANIZ ATION 10/29/2023 [facility] FOR RECORDS PERTAINING TO PATIENTS WHO ARE [...] BE BASED ON THE PRIMARY CLINICAL RECORDS. [employer] provides no warranty or guarantee of the accuracy or completeness of information in this document.
[2025-03-24 05:12] LABS: Color, Urine Yellow (Yellow); Glucose, Dipstick Normal (Normal); Ketone-Dipstick Negative (Negative); Leukocyte Esterase-Dipstick Negative /ul (Negative); Nitrite-Dipstick Negative (Negative); Occult Blood-Urine 50 /ul (Negative); Protein-Dipstick 15 mg/dl (Negative); Specific Gravity, Urine 1.025 (1.002-1.030); Urine Bilirubin Dipstick Negative (Negative); Urine Clarity Clear (Clear); Urine Urobilinogen Normal (Normal)
[2025-03-24] MEDS: 0.9% Normal Saline (1000mL) 1,000 ML 999 ML IV (05:15)
[2025-03-24] MEDS: Ondansetron 4 MG/2 ML Vial IV (05:15)
[2025-03-24] MEDS: Morphine 4 MG/ML Syringe IV (05:16)
[2025-03-24 05:32] LABS: White Blood Cells 0-5 SEEN /hpf (0-5)
[2025-03-24 05:37] LABS: Anion Gap 13 (5-15); BUN 16 mg/dL (4-19); BUN/Creat Ratio 16.1 RATIO (10-20); Calcium,Total 8.9 mg/dL (7.6-11.0); Carbon Dioxide 23.1 mmol/L (21.0-32.0); Chloride 104 mmol/L (98-108); Creatinine, Serum 1.02 mg/dL (0.70-1.20); EST Glomerular Filtration Rate 92 (>60); Estimated Creatinine Clearance 109.69 ml/min (50-250); Glucose 111 mg/dL (70-99); Sodium Level 140 mmol/L (133-145)
[2025-03-24] MEDS: HYDROmorphone 1 MG/ML Syringe IV (07:24)
[2025-03-24] MEDS: 0.9% Normal Saline (1000mL) 1,000 ML 100 ML IV (08:08)
--- NOTE | 2025-03-24 08:58 | PRE.ANES_ITS ---
ASA Classification* ASA Classification ASA Classification: 2 Assessment & Plan Anesthesia* Anesthesia Assessment Anesthesia Assessment: Discussed sedation and/or anesthesia options, risks, benefits, and alternatives with patient/parents/legal guardian/POA. Questions invited. The patient/parents/legal guardian/POA seems to understand and agrees to proceed with anesthesia plan. Reviewed the physical assessment, medical history, allergy history and patient home medications list prior to surgery/procedure/anesthetic and documented any changes. Performed airway and anesthesia risk assessments. Anesthesia Type Anesthesia Type: General History Source History Obtained from:: Patient and Chart Anesthesia Focused Assessment* Temperature: 97.9 F Pulse Rate: 89 Blood Pressure: 134/78 Respiratory Rate: 16 Pulse Ox: 99 Oxygen Delivery Method: Room Air Airway Assessment Mouth opens: >3 cm Mallampati Score: II Teeth Condition: Chipped/Broken (Patient has a couple chipped teeth.) and Missing (Patient has several missing teeth. Rest are tight.) Neck Range of motion (ROM): Full ROM Labs Anesthesia Preop lab: CBC WBC 7.7 K/mm3 (4.4-11.0) 03/24/25 04:43 03/24/25 RBC 5.07 M/mm3 (4.6-6.2) 03/24/25 04:43 03/24/25 Hgb 15.4 g/dL (13.0-16.5) 03/24/25 04:43 03/24/25 Hct 45.1 % (40-54) 03/24/25 04:43 03/24/25 Plt Count 223 K/mm3 (150-450) 03/24/25 04:43 03/24/25 CHEMISTRY Potassium 4.0 mmol/L (3.3-5.1) 03/24/25 04:43 03/24/25 Sodium 140 mmol/L (133-145) 03/24/25 04:43 03/24/25 BUN 16 mg/dL (4-19) 03/24/25 04:43 03/24/25 Creatinine 1.02 mg/dL (0.70-1.20) 03/24/25 04:43 03/24/25 Glucose 111 mg/dL (70-99) H 03/24/25 04:43 03/24/25 COAG Pre-Assessment Diagnosis/Proposed Procedure Planned Operative Procedure(s): Laparoscopic inguinal hernia repair with mesh, possible open. Right side Anesthesia History Anesthesia History - identification officer: Anesthesia History - identification officer Hx Hospitalization Any Problems With Anesthesia No 03/24/25 08:07 Cholinesterase deficiency No 03/24/25 08:07 You/Your Family Experience No 03/24/25 08:07 fever (hyperthermia) with Relationship Recent Exposure to Contagious No 03/24/25 08:07 Disease Does patient have nerve No 03/24/25 08:07 stimulator Patient instructed to have No 03/24/25 08:07 device shut off --Does patient have Pacemaker No 03/24/25 08:13 or ICD? When Was Last Pacemaker Check QUESTION #4 FULL TEXT: You/Your Family Experience fever (hyperthermia) with Anesthesia Last Oral Intake Last Oral intake: Last Oral Intake NPO since 19:00 03/24/25 08:13 Meds taken in AM with sips of water? Meds patient instructed to take am of surgery PONV PONV - identification officer: PONV - identification officer Female HX of Motion Sickness HX of N/V After Surgery Non-Smoker Duration of Surgery greater than 60 minutes Number of Risk Factors PONV Score Height & Weight Height & Weight: Anesthesia: Height & Weight Height 5 ft 11 in 03/24/25 08:13 Weight: 101.3 kg 03/24/25 08:13 Body Mass Index (BMI) 31.1 03/24/25 08:13 Respiratory Assessment Respiratory Assessment - identification officer: Respiratory Tract Infection Hx - identification officer Hx Respiratory Tract Infection No 03/24/25 08:07 STOP Sleep Apnea STOP Sleep Apnea - identification officer: STOP Sleep Apnea - identification officer Hx Hypertension No 03/24/25 08:07 Hx Sleep Apnea No 03/24/25 08:07 CPAP BIPAP Do you snore loudly (louder No 03/24/25 08:07 than talking or can be heard Do you often feel tired/ No 03/24/25 08:07 fatigued/ sleepy during daytime? Has anyone observed you stop No 03/24/25 08:07 breathing during sleep? STOP Results Negative 03/24/25 08:07 QUESTION #5 FULL TEXT : Do you snore loudly (louder than talking or can be heard through closed doors)? Tobacco Use History Tobacco Use History - identification officer: Tobacco Use History - identification officer Tobacco Use Smoking Status Current every day smoker 03/24/25 04:26 Hx Tobacco Use Yes 09/02/14 22:49 Years Smoking Packs Smoked per Day Smoking Cessation Date was within the last 15 years Hx Smoking Cessation Date Hx Smoking Cessation Counseling Any additional information?: Yes Tobacco Use: Vapor (Patient vaped today.) Hematologic Medial History Hematologic Hx - identification officer: Hematologic Medical Hx - bus driver/monitor Hx of Blood Transfusion Hx of Transfusion in last 3 Months Date of Last Transfusion (if within last 3 months) Ever experience any problems with transfusion(s)? Specify any problems Hx of Preganancy in last 3 Months Nurse Filling Out Transfusion & Questions: Date: Time: Patient unable to answer at this time (ie. confused, unrespo /Reproduction History /Reproductive History - identification officer: /Reproductive Hx- identification officer Hx Now No 03/24/25 08:07 Gestational Age (in weeks): EDC: Hx Hx Para Hx Section SAB No 03/24/25 08:07 Active Medications Active Medications: Current Medications Generic Name Dose Route Start Last Admin Trade Name Freq PRN Reason Stop Dose Admin Sodium Chloride 1,000 mls @ 100 mls/hr 03/24/25 07:35 03/24/25 08:08 IV 100 mls/hr .Q10H JENN Administration PFSH Medical History Asthma Home Medications ?Medication ?Instructions ?Recorded ?Last Taken ?Type NK 03/24/25 Unknown History Allergy/AdvReac Type Severity Reaction Status Date / Time No Known Allergies Allergy Verified 03/24/25 04:27 Family History Other Hypertension Kidney disease Surgical History H/O hernia repair Social History Smoking Status: Current every day smoker tobacco type: cigarettes alcohol intake: current alcohol intake frequency: a few times a week Alcohol type: beer Review of Systems (Anesthesia) ROS Narrative System reviewed and no additional complaints, except as documented.
--- NOTE | 2025-03-24 09:00 | HERN_PTH ---
PATIENT: SURAJ GARVEY LOC: [facility] – [place] U#:[id number] AGE/SX: 44/M ROOM: RE03/24/[address]: Dr. Clark Stoll MD : 1980 BED: DIS: 03/24/2025 SPEC #: [id number] RECD: 03/24/25 12:49 STATUS: KEVIN RELa #: [id number] MANI: 03/24/25 09:[address]: Clark Stoll DEPT: SURGICAL PATHOLOGY RECD BY: Saúl Yao ENTERED: 03/24/25 13:44 SP TYPE: Hernia OTHR DR: No Primary Care Phys Tissues: A - HERNIA Procedures: Surgery Specimen Level II HEADER OPERATION: Laparoscopic, inguinal hernia repair mesh PRE-OP DIAGNOSIS: Incarcerated inguinal hernia right TISSUE SUBMITTED: A- Inguinal hernia sac, right MICROSCOPIC DIAGNOSIS A. Hernia, inguinal, right, incarcerated inguinal hernia, repair: - Fibroadipose tissue partially covered by an attenuated mesothelium, consistent with hernia sac. MICROSCOPIC DESCRIPTION Slides are reviewed. GROSS DESCRIPTION Received in formalin labeled with the patient's name and date of . Designated as inguinal hernia, is a beard-pink to red somewhat shaggy and edematous portion of semimembranous tissue and a portion of beard-yellow soft tissue, collectively measuring 9.9 x 7.9 x 1.6 cm. Controller Repairer And Tester sections are submitted in 1 cassette. OK 03/24/2025 CPT:51975
[2025-03-24 09:24] LABS: Reflex Lactate? Y
--- NOTE | 2025-03-24 09:31 | PCM.HP.STD ---
HPI - General General Date of Admission: 03/24/25 Date of Service: 03/24/25 Chief Complaint: Right inguinal hernia HPI Narrative SURAJ GARVEY, is a 44 M who presented to the emergency department overnight with right groin pain. Patient has a history of a previous right inguinal hernia repair performed open with mesh about [address] Escobar[address] It sounds as though this may have gradually recurred but really did not cause him any issues or problems until last night. Last night his pain intensified with severe pain in the right groin and scrotum. He presented to the emergency room for further evaluation and treatment. A CT scan was performed and revealed a large right inguinal hernia containing cecum and fluid. Surgical consult was obtained. I attempted to reduce the hernia in the ER but this was unsuccessful [facility] Medical History (Updated 03/24/25 @ 09:[address] Clark Stoll MD) Incarcerated right inguinal hernia Asthma Home Medications ?Medication ?Instructions ?Recorded ?Last Taken ?Type NK 03/24/25 Unknown History Allergy/AdvReac Type Severity Reaction Status Date / Time No Known Allergies Allergy Verified 03/24/25 04:27 Family History Other Hypertension Kidney disease Surgical History H/O hernia repair Social History Smoking Status: Current every day smoker tobacco type: cigarettes alcohol intake: current alcohol intake frequency: a few times a week Alcohol type: beer Vital Signs Vital Signs Vital Signs: 03/24/25 04:24 03/24/25 06:22 03/24/25 08:05 Temperature 98.4 F Temperature Source Oral Pulse Rate 84 84 78 Respiratory Rate 18 16 14 Blood Pressure 164/101 H 132/94 H 132/76 H Blood Pressure Mean 122 106 94 Blood Pressure Source Blood Pressure Position Blood Pressure Location Pulse Ox 99 98 98 Oxygen Delivery Method Room Air Room Air Room Air 03/24/25 08:07 03/24/25 09:06 Temperature 97.9 F 97.9 F Temperature Source Oral Pulse Rate 89 89 Respiratory Rate 16 16 Blood Pressure 134/78 H 134/78 H Blood Pressure Mean 96 Blood Pressure Source Monitor Blood Pressure Position Semi-Fowlers Blood Pressure Location Right Arm Pulse Ox 99 99 Oxygen Delivery Method Room Air Room Air Weight Weight: 223 lb 5.252 oz Body Mass Index (BMI) 31.1 Physical Exam Narrative He is alert and oriented x 3. He is in no acute distress. Head is normocephalic and atraumatic. Pupils are equal round and reactive to light. Abdomen is soft nontender nondistended. Examination of the groin reveals a large right inguinal hernia. This was unable to be reduced secondary to pain. I felt like I could partly reduce it however discomfort precluded further reduction efforts. No overlying skin changes. Results Lab / Micro Data 03/24/25 04:43 03/24/25 04:43 Labs: Laboratory Results - last 24 hr 03/24/25 04:43: WBC 7.7, RBC 5.07, Hgb 15.4, Hct 45.1, MCV 89.0, MCH 30.4, MCHC 34.1, RDW Std Deviation 39.8, RDW Coeff of Jessica 12.3, Plt Count 223, MPV 10.6, Immature Gran % (Auto) 0.900, Neut % (Auto) 60.7, Lymph % (Auto) 27.6, Upson % (Auto) 7.9, Eos % (Auto) 2.1, Baso % (Auto) 0.8, Absolute Neuts (auto) 4.7, Absolute Lymphs (auto) 2.12, Nucleated RBC % 0, Sodium 140, Potassium 4.0, Chloride 104, Carbon Dioxide 23.1, Anion Gap 13, BUN 16, Creatinine 1.02, Estim Creat Clear Calc 109.69, Est GFR (MDRD) Non-Af 92, BUN/Creatinine Ratio 16.1, Glucose 111 H, Calcium 8.9, Urine Color Yellow, Urine Clarity Clear, Urine pH 5.0, Ur Specific [place] 1.025, Urine Protein 15 H, Urine Glucose (UA) Normal, Urine Ketones Negative, Urine Occult Blood 50 H, Urine Nitrite Negative, Urine Bilirubin Negative, Urine Urobilinogen Normal, Ur Leukocyte Esterase Negative, Urine RBC 0 SEEN, Urine WBC 0-5 SEEN, Ur Squamous Epith Cells 0 SEEN, Urine Bacteria 0 SEEN, Urine Mucus 0 SEEN 03/24/25 05:15: Lactic Acid 2.0 Imaging Radiology Impression Abdomen/Pelvis CT 03/24/25 04:54 IMPRESSION: Right inguinal hernia containing thickened segment of the cecum with surrounding fat edema and free fluid suspicious for incarceration. No associated pneumatosis coli or perforation. Left inguinal hernia containing nonincarcerated fat. Mild prostatomegaly. Scattered prostatic calcifications, chronic finding. Scattered well-defined hypodense splenic lesions are noted with the largest measuring 1.2 cm, probably benign and chronic. Mild hepatic steatosis. Left renal simple cyst measuring 1.6 cm. Findings were discussed with Dr. Lal at 6:45 am EST. Reading [facility] Assessment & Plan Assessment/Plan (1) Incarcerated right inguinal hernia: PLAN: Plan The patient is a 44-year-old male with an incarcerated right inguinal hernia. I have offered him a laparoscopic right inguinal hernia repair with mesh possible open. We discussed the details of the planned procedure and he wishes to proceed. This will begin momentarily. IV antibiotics will be given Charges/Coding Visit Charges Inpatient E&M: 28914 Init Hosp L3
[2025-03-24] MEDS: Cefazolin 2 GM in 0.9% Normal Saline (100mL Bag) 100 ML IV (09:55)
--- NOTE | 2025-03-24 12:03 | DCINST_ITS ---
Discharge Instructions Diet Discharge Diet: Light diet - advance as tolerated Activity Discharge Activity: May Shower May shower in (days): 1 Lifting Restrictions: No lifting pushing or pulling more than 20 pounds for 8 weeks Dressing / Incision Call your doctor if your incision/area has: Continuous Slow Oozing, Sudden Increased Bleeding, Increased Pain/ Swelling, Increased Redness, Foul Smelling Discharge and Swelling at the incision site Call your doctor if you observe: Fever of 101 or Higher Remove Dressing in: 5 days Cleanse incision/area with: Soap & Water Follow Up Care Please Follow Up With: Clark Stoll MD When: 2 weeks. Please call office to schedule appointment Test Results: Test results from this visit will be discussed in further detail at your follow- up appointment, if applicable. Discharge Plan Admission Primary Reason for Your Visit: Incarcerated right inguinal hernia Attending Provider: Clark Stoll Primary Care Provider: Care Physician,No Primary Instructions Print Language: Kenyan Discharge Orders/Prescriptions Prescriptions: New oxycodone-acetaminophen [Percocet] 5-325 mg tablet 1 tab PO Q8H PRN (Reason: pain) 5 Days Qty: 15 0RF Referrals / Follow Up: Care Physician,No Primary [Primary Care Provider] - Disposition Disposition (needs filled in before D/C Order can be placed): Home, Self Care
--- NOTE | 2025-03-24 12:07 | PCM.OPRPT ---
Problems Associated Problem List Diagnoses (1) Incarcerated right inguinal hernia: Procedures Digestive 40xxx-49xxx: 98133 RPR AA HRN 12-05 NCR/STRN Operative Report (Standard) Operative Information Date of Procedure: 03/24/25 Pre-Operative Diagnosis: Incarcerated right inguinal hernia Post-Operative Diagnosis: Same Surgery/Procedure Performed: 1. Diagnostic laparoscopy 2. Open repair of an incarcerated right inguinal hernia right inguinal hernia with mesh provisioning analyst: Yes Cardiac Rehab Nurse: Gary Sanchez Tasks completed by parking assistant: Closing and Retracting Additional human resources assistant manager?: No Type of Anesthesia: General and Local RN Documented Start/Stop Times: Operation Date: 03/24/25 09:00 Case Time Into Pre-Op 03/24/25 08:11 Out of Pre-Op 03/24/25 09:32 Anesthesia Start 03/24/25 09:39 Into Room 03/24/25 09:39 Procedure Start 03/24/25 10:15 Procedure End 03/24/25 12:19 Anesthesia End 03/24/25 12:25 Out of Room 03/24/25 12:25 Into Recovery 03/24/25 12:26 Into Phase II Recovery 03/24/25 13:33 Out of Recovery 03/24/25 13:33 Out of Phase II 03/24/25 14:33 Procedure Start Time: 10:15 Procedure Stop Time: 12:15 Select all DRAINS/GRAFTS/IMPLANTS that apply: Implanted device Implanted device details: Extra-large mesh plug and patch Special Medications: 2 g Ancef Estimated Blood Loss: 15 mL Specimen collected: Yes Description of specimen(s) removed: Hernia sac Description of surgery: The patient is a 44-year-old male who presented to the emergency room early this morning with right scrotal pain and worsening hernia. He had had this hernia repaired both as an infant as well as about [address] Escobar[address] This was done and is a open repair with mesh. Patient states that while having intercourse last evening he developed severe right groin pain. He presented to the emergency department this morning and a CT scan was performed that showed a large inguinal hernia containing portions of cecum. This was unable to be reduced in the emergency department so at this point I recommended laparoscopic possible open right inguinal hernia repair with mesh. Preoperative antibiotics were given and a timeout was performed. Following informed consent he was brought to the operating room. He was placed supine on the operative table with arms outstretched and arm boards. The abdomen and groin regions were prepped and draped in the usual sterile manner. A general anesthesia was utilized. We started laparoscopically by making a incision just above the umbilicus. Through this a 5 mm trocar was placed optically. This was placed without incident. Once in place the 5 mm scope was inserted. There were no signs of bowel or vascular injury clearly a hernia was visible in the right groin. I have placed a second 5 mm trocar in the left side of the abdomen. This was placed under direct visualization without difficulty. A bowel grasper was used to try to pull the bowel and lowered while pressure from the outside was also employed. This too failed to reduce the hernia. At this point in open approach was undertaken. Previous incision was reopened. Bovie electrocautery was then used dissect down through the subcutaneous tissues. The hernia was encountered. This was a very large hernia that went entirely into the left scrotum. Once the hernia sac was delivered up and out of the scrotum the hernia sac was opened up and the contents were identified. Cecum was present and appeared healthy and viable. The cord structures were and preserved. The testicle did come up into the operative field. The first goal was to free up the cecum and reduce this intra-abdominal he. This was performed. Next the cord structures were skeletonized. The involved hernia sac was excised. Once this was all performed a large mesh plug was inserted. This was sutured to surrounding fascia as well as the pubic tubercle. He had a pretty extensive fascial defect and surrounding tissue was attenuated due to the size of the hernia. Once the mesh plug was in place, a mesh patch was then placed above and secured to surrounding tissue. The previous mesh was left in situ. The testicle was placed back into the scrotum. The subcutaneous layer was then closed using 2-0 Vicryl. 3-0 Vicryl was used to close the subdermal layer. Finally 4-0 Vicryl was used to close the skin. Skin glue was applied as dressing along with a Mepilex. The patient was then awakened anesthesia and taken recovery in good condition. Surgical Findings: Very large chronic right inguinal hernia. Not readily reducible. Cecum viable Complications Complications: No Admit VTE Documentation VTE Present on Admission: No VTE Mechan Device Prophylaxis: SCD's VTE Pharm Prophylaxis ordered?: No Reason prophylaxis not ordered: Treatment Not Indicated
[2025-03-24] MEDS: Bupiv/Epi 0.25% 30 ML Vial (12:15)
--- NOTE | 2025-03-24 12:30 | PCM.POST.ANE ---
Anesthesia: Postop Eval I Current Vital Signs Temperature: 98.2 F Pulse Rate: 93 Blood Pressure: 136/84 Respiratory Rate: 16 Pulse Ox: 96 Oxygen Delivery Method: Room Air Assessment Airway patent: Yes Spontaneous unlabored respirations: Yes Mental status: Asleep nausea: No Vomiting: No Anesthesia Complication: No Fluid Hydration Crystalloid volume administer (ml): 1,400 Total IV fluid infused: 1,400 Progress Note Anesthesia document: Postop Eval 1 completed: Yes
[2025-03-24] MEDS: oxyCODONE 5 MG Tablet PO (14:23)
[2025-03-24] MEDS: Acetaminophen 325 MG Tablet PO (14:23)
--- NOTE | 2025-03-27 09:49 | POSTOPAN2_ITS ---
Anesthesia Postop Eval I Sum Postop Eval Completion status Anesthesia document: Postop Eval 1 completed: Yes Anesthesia Postop Eval I Summary Anesthesia Postop Eval I Summary: Anesthesia Postop Eval I: Assessment Summary Airway patent Yes 03/24/25 12:31 CROSS ENTERPRISE [email or web address] Spontaneous unlabored Yes 03/24/25 12:31 CROSS ENTERPRISE [email or web address] respirations Mental status Asleep 03/24/25 12:31 CROSS ENTERPRISE [email or web address] nausea No 03/24/25 12:31 CROSS ENTERPRISE [email or web address].[email or web address] Vomiting No 03/24/25 12:31 CROSS ENTERPRISE [email or web address] Anesthesia Postop Eval I: Fluid Summary Crystalloid volume administer 1,400 03/24/25 12:31 CROSS ENTERPRISE [email or web address] (ml) Colloids volume administered ( ml) Blood Product volume administered (ml) Total IV fluid infused 1,400 03/24/25 12:31 CROSS ENTERPRISE [email or web address].[email or web address] Anesthesia Postop Eval I: Summary Notes Anesthesia Complication No 03/24/25 12:31 CROSS ENTERPRISE [email or web address].[email or web address] Anesthesia Complication Comment: Post-operative progress note Anesthesia: Postop Eval II Evaluation Mental status: Awake and Calm Pain Level: 1 nausea: No Vomiting: No Complications Anesthesia Complication: No
--- NOTE | 2025-03-27 09:49 | PCM.POSTANE2 ---
Anesthesia Postop Eval I Sum Postop Eval Completion status Anesthesia document: Postop Eval 1 completed: Yes Anesthesia Postop Eval I Summary Anesthesia Postop Eval I Summary: Anesthesia Postop Eval I: Assessment Summary Airway patent Yes 03/24/25 12:31 STUD BEEF CATTLE [email or web address] Spontaneous unlabored Yes 03/24/25 12:31 STUD BEEF CATTLE [email or web address] respirations Mental status Asleep 03/24/25 12:31 STUD BEEF CATTLE [email or web address] nausea No 03/24/25 12:31 STUD BEEF CATTLE [email or web address] Vomiting No 03/24/25 12:31 STUD BEEF CATTLE [email or web address] Anesthesia Postop Eval I: Fluid Summary Crystalloid volume administer 1,400 03/24/25 12:31 STUD BEEF [email or web address] [email or web address] (ml) Colloids volume administered ( ml) Blood Product volume administered (ml) Total IV fluid infused 1,400 03/24/25 12:31 STUD BEEF CATTLE [email or web address] Anesthesia Postop Eval I: Summary Notes Anesthesia Complication No 03/24/25 12:31 STUD BEEF CATTLE [email or web address] Anesthesia Complication Comment: Post-operative progress note Anesthesia: Postop Eval II Evaluation Mental status: Awake and Calm Pain Level: 1 nausea: No Vomiting: No Complications Anesthesia Complication: No
== END 2025-03-24 14:33 | disposition home or self-care (01) ==
LOC: ED 08:07 → SDC 08:49 → ACINP 09:38
PROVIDERS: Emergency Provider Surgery; Visit Provider Surgery
PROC: (CPT 49650; principal; 2025-03-24 08:40)
DX: K40.30 Unilateral inguinal hernia, with obstruction, without gangrene, not specified as recurrent (principal); F17.210 Nicotine dependence, cigarettes, uncomplicated; Z53.31 Laparoscopic surgical procedure converted to open procedure
CPT/HCPCS: 49507; 00830; 74177; 80048; 81001; 83605; 85025; 88302; 99283; Q9967; A4216; C1781; J2405

== ENCOUNTER 2025-06-07 20:15 | Emergency (ER) | payer BC, SELFPAY ==
[2025-06-07 20:15] VITALS: BP 137/94; PULSE 130; RESP 12; TEMP 36.6; O2SAT 98
[2025-06-07 20:32] VITALS: BMI 33.5
--- NOTE | 2025-06-07 21:23 | EX.ED.DYSGE1 ---
HPI History of Present Illness Chief Complaint: Abd Pain Narrative Narrative: Chief complaint and HPI: 44-year-old male with past medical history of incarcerated right inguinal hernia status post repair presents for evaluation of right groin pain. Patient states that prior to arrival he was at the [place] helping his friend with the dishes. He states that he slipped on the stairs walking into a trailer in which he hit the right groin on the step edge. States he felt a stretching sensation in his right groin after ambulating with some mild pain. States the symptoms have since resolved. He denies any fever, chills, shortness of breath, chest pain abdominal pain, nausea, vomiting, testicular or penile pain, dysuria. Review of systems: See HPI Medications: As listed on the chart Allergies: As listed on the chart PFSH: Per chart Vital signs: As listed on the chart. Reviewed. Physical exam: Gen: A&O x3, NAD Head: Normocephalic, atraumatic Eyes: No sclera icterus, conjunctiva clear ENT: Moist mucous membranes Neck: Trachea midline, No JVD CV: RRR, no murmurs, no peripheral edema Resp: Lungs CTA BL, no w/r/c GI: Abd soft, non-distended, non-tender, no r/r/g : Circumcised penis. No penile tenderness or discharge. No penile or testicular swelling. Normal lie and position of the testicles. No testicular tenderness, masses, or skin changes. Cremasteric reflexes intact and equal bilaterally. No rashes. No palpable hernias. Previous inguinal hernia incision healed well without signs of infection. No crepitus. No cellulitis. Musc: Full ROM, no deformity Skin: Warm, dry Neuro: Alert, oriented, grossly intact, sensation intact Psych: Cooperative, appropriate mood and affect [facility] Medical History (Updated 06/07/25 @ 21:[address] Chava Geiger DO) Incarcerated right inguinal hernia Asthma Home Medications ?Medication ?Instructions ?Recorded ?Last Taken ?Type NK 04/07/25 Unknown History Allergy/AdvReac Type Severity Reaction Status Date / Time No Known Allergies Allergy Verified 06/07/25 20:16 Family History Other Hypertension Kidney disease Surgical History H/O hernia repair Social History Smoking Status: Current every day smoker tobacco type: cigarettes alcohol intake: current alcohol intake frequency: a few times a week Alcohol type: beer EXAM Physical Exam Const Vital Signs: 06/07/25 20:15 Temperature 97.8 F Temperature Source Oral Pulse Rate 130 H Respiratory Rate 12 Blood Pressure 137/94 H Blood Pressure Mean 108 Pulse Ox 98 Oxygen Delivery Method Room Air MDM MDM MDM Narrative Medical decision making narrative: 44-year-old male with past medical history of incarcerated right inguinal hernia status post repair presents for evaluation of right groin pain. Patient states that prior to arrival he was at the fair helping his friend with the dishes. He states that he slipped on the stairs walking into a trailer in which he hit the right groin on the step edge. States he felt a stretching sensation in his right groin after ambulating with some mild pain. States the symptoms have since resolved. He denies any fever, chills, shortness of breath, chest pain abdominal pain, nausea, vomiting, testicular or penile pain, dysuria. On chart review, patient had a diagnostic laparoscopy with open repair of an incarcerated right inguinal hernia with mesh. This was performed on 03/24/[address] Stoll. On presentation, patient in no acute distress. Physical exam is unremarkable. Differential diagnosis includes but is not limited to groin strain, recurrent hernia, postsurgical complication. Recommended CT abdomen pelvis and basic labs be ordered including urine. Patient declined. States that his pain has resolved and he would not like further workup. I personally explained to him that choosing to do so may result in permanently bodily harm without further workup as I cannot diagnose the cause of the patient's groin pain. I discussed at length that without further evaluation and monitoring there may be unforeseen circumstances and deterioration. He is alert and oriented and can make his own decision. He states that he is aware of the serious risks as explained, but continues to not have any further workup performed given that his symptoms have resolved. Patient will be discharged home per his request. Recommend following up with PCP. Return precautions explained. He was educated return back to the ED immediately if he changes mind at any time or if his condition begins to change or worsen. He confirmed understanding the plan. Patient stable for discharge home. Impression: 1. Resolved right groin pain 2. Mechanical fall Discharge Plan Triage Chief Complaint: Abd Pain ED Provider: Chava Geiger Dx/Rx/DC Orders Clinical Impression: Right groin pain Instructions: ED Abdominal Pain Unkn Cause Male... Prescriptions: No Action NK Primary Care Provider: Care Physician,No Primary Referrals: Tani Driver MD [Med Staff - Active Staff] - 3-5 Days Activity Restrictions/Additional Instructions: Follow-up with primary care physician. Return back to ED if symptoms change or worsen. If you do not have a primary care physician follow-up the one provided above. Print Language: Turkmen Disposition Disposition: Home, Self Care Discharge Date/Time: 06/07/25 21:27
== END 2025-06-07 21:27 | disposition home or self-care (01) ==
PROVIDERS: Emergency Provider Surgery; Visit Provider Surgery
DX: R10.31 Right lower quadrant pain (principal); F17.210 Nicotine dependence, cigarettes, uncomplicated; W19.XXXA Unspecified fall, initial encounter
CPT/HCPCS: 99282